=== PATIENT | female | born 1970 | race Caucasian/White ===

== ENCOUNTER 2021-11-13 17:02 | Emergency (ER) | payer BC, SELFPAY ==
[2021-11-13 17:20] VITALS: BP 145/76; PULSE 74; RESP 20; TEMP 36.8; O2SAT 96; BMI 24.0
--- NOTE | 2021-11-13 17:46 | EXP.UTC ---
Discharge Plan Disposition Patient Disposition: Home, Self-Care Condition: Good Prescriptions Prescriptions: New sulfamethoxazole-trimethoprim [Bactrim DS] 800-160 mg tablet 1 tab PO Q12H Qty: 20 0RF mupirocin 2 % ointment 1 applic topical BID Qty: 15 0RF No Action omeprazole 40 mg capsule,delayed release(DR/EC) 40 mg PO DAILY cholecalciferol (vitamin D3) 5,000 unit tablet 5,000 unit PO DAILY amoxicillin 500 mg capsule 500 mg PO Q12H 10 Days Qty: 20 0RF Referrals Follow up/Referrals: Nickolas Song [Primary Care Provider] - See instructions Clinical Impressions Clinical Impression: Insect bite Instructions Patient Instructions: DI for Insect Bites and Stings Discharge ED Provider: Ana ([facility])Gabriella [facility] [place] General Stated complaint: itchy wound on left elbow Mode of Arrival: Ambulatory Source of Information: Patient Limitations: No Limitations Time Seen by Provider: 11/13/21 17:46 Description of Symptoms (Recalled from Triage Doc. by RN): PATIENT C/O POSSIBLE SPIDER BITE TO LEFT ELBOW THAT SHE NOTICED MONDAY. C/O REDNESS AND ITCHING TO AREA HEENT Symptoms (Recalled from RN notes): No Resp Symptoms (Recalled from RN notes): No Skin Symptoms (Recalled from RN notes): Yes MS Symptoms (Recalled from RN notes): No Functional Status (Recalled from RN notes): WNL History of Present Illness Provider Complaint: 51 yr old female presents for red itchy area to left elbow. pt states it started monday with a couple of blisters and a bite area in the middle. Related Data Home Medications Medication Instructions Recorded Confirmed cholecalciferol (vitamin D3) 125 5,000 unit PO DAILY 11/26/17 10/18/18 mcg (5,000 unit) tablet omeprazole 40 mg capsule,delayed 40 mg PO DAILY 11/26/17 10/18/18 release Previous Rx's Medication Instructions Recorded amoxicillin 500 mg capsule 500 mg PO Q12H sinusitis 10 days 10/18/18 #20 caps mupirocin 2 % topical ointment 1 applic topical BID #15 grams 11/13/21 sulfamethoxazole 800 1 tab PO Q12H #20 tabs 11/13/21 mg-trimethoprim 160 mg tablet (Bactrim DS) Allergies Allergy/AdvReac Type Severity Reaction Status Date / Time No Known Allergies Allergy Verified 11/13/21 17:41 Worker's Comp Is this a Worker's Comp case?: No PFSH PFSH Medical History , [employer]) Hyperlipidemia Surgical History , [employer]) History of cholecystectomy History of hysterectomy Social History , [employer]) Smoking Status: Current every day smoker tobacco type: cigarettes alcohol intake: current substance use type: denies use current occupational status: employed Travel in the last 8 weeks: None ROS Obtained: Yes All systems reviewed & no additional complaints except as documented Constitutional Constitutional: Reports system reviewed and no additional complaints, except as documented Eyes Eyes: Reports system reviewed and no additional complaints, except as documented ENT Ears, Nose, Mouth, and Throat: Reports system reviewed and no additional complaints, except as documented Cardiovascular Cardiovascular: Reports system reviewed and no additional complaints, except as documented Respiratory Respiratory: Reports system reviewed and no additional complaints, except as documented Gastrointestinal Gastrointestingal: Reports system reviewed and no additional complaints, except as documented Integumentary/Breasts Skin/Breast: Reports system reviewed and no additional complaints, except as documented, Reports as per HPI and Reports sores Neurologic Neurologic: Reports system reviewed and no additional complaints, except as documented Endocrine Endocrine: Reports system reviewed and no additional complaints, except as documented Hematologic/Lymphatic Henatologic/Lymphatic: Reports syste
[2021-11-13 17:55] VITALS: BP 145/76; PULSE 74; RESP 20; TEMP 36.8; O2SAT 96
== END 2021-11-13 18:00 | disposition home or self-care (01) ==
PROVIDERS: Emergency Provider Nurse Practitioner Family; PCP Internal Medicine
DX: S50.362A Insect bite (nonvenomous) of left elbow, initial encounter (principal); W57.XXXA Bitten or stung by nonvenomous insect and other nonvenomous arthropods, initial encounter
CPT/HCPCS: 99212; G0463

== ENCOUNTER 2021-12-17 08:26 | Emergency (ER) | payer BC, SELFPAY ==
[2021-12-17 08:44] VITALS: BP 176/69; PULSE 80; RESP 18; TEMP 36.7; O2SAT 100; BMI 22.8
--- NOTE | 2021-12-17 09:05 | EXP.UTC ---
Discharge Plan Disposition Patient Disposition: Home, Self-Care Condition: Fair Prescriptions Prescriptions: New prednisone [prednisone] 20 mg tablet 20 mg PO BID 5 Days Qty: 10 0RF ofloxacin 0.3 % drops 1 drp otic (ear) QID 7 Days Qty: 5 0RF Rx Instructions: One drop affected eye every 2 hours while awake X 48 hours, then one drop affected eye QID for an additional 5 days amoxicillin-pot clavulanate 875-125 mg Tablet 1 tab PO Q12H Qty: 20 0RF No Action omeprazole 40 mg capsule,delayed release(DR/EC) 40 mg PO DAILY cholecalciferol (vitamin D3) 5,000 unit tablet 5,000 unit PO DAILY amoxicillin 500 mg capsule 500 mg PO Q12H 10 Days Qty: 20 0RF sulfamethoxazole-trimethoprim [Bactrim DS] 800-160 mg tablet 1 tab PO Q12H Qty: 20 0RF mupirocin 2 % ointment 1 applic topical BID Qty: 15 0RF atorvastatin 10 mg tablet 10 mg PO DAILY Label Comments: TAKE 1 TABLET BY MOUTH ONCE DAILY meloxicam 15 mg tablet 15 mg PO DAILY cyclobenzaprine 5 mg tablet 5 mg PO DIRECTED PRN (Reason: Muscle Pain) Label Comments: TAKE 1 TABLET BY MOUTH EVERY 4 TO 6 HOURS NEEDED Referrals Follow up/Referrals: Nickolas Song [Primary Care Provider] - See instructions Activity Restrictions/Add. Instructions Additional Instructions/Restrictions: Take all antibiotics as prescribed until gone Warm compresses to left eye Return to [facility] if severe pain, blurred vision, worsening of symptoms, etc Follow up with Dr Song next week Clinical Impressions Clinical Impression: Periorbital cellulitis of left eye, Sinusitis Instructions Patient Instructions: DI for Orbital Cellulitis Discharge ED Provider: Yola Schmidt [facility] [place] General Stated complaint: LT eye inflammation, drainage Mode of Arrival: Ambulatory Source of Information: Patient Limitations: No Limitations Time Seen by Provider: 12/17/21 09:08 Description of Symptoms (Recalled from Triage Doc. by RN): pt comes in with c/o waking up to eyes swollen shut. HEENT Symptoms (Recalled from RN notes): Yes Resp Symptoms (Recalled from RN notes): No Skin Symptoms (Recalled from RN notes): No MS Symptoms (Recalled from RN notes): No Functional Status (Recalled from RN notes): n/a History of Present Illness Provider Complaint: Patient has had sinus congestion and drainage for about a week. Last night began having drainage from left eye. This am left eye is swollen, matted, irritated and red. No fever. Onset (ago): day(s) (1) Location: eyes (left) Severity: severe Relieving factors: none Exacerbating factors: none Associated symptoms: denies other symptoms Treatments prior to arrival: none Related Data Home Medications Medication Instructions Recorded Confirmed cholecalciferol (vitamin D3) 125 5,000 unit PO DAILY Supplement 11/26/17 12/17/21 mcg (5,000 unit) tablet omeprazole 40 mg capsule,delayed 40 mg PO DAILY GERD 11/26/17 12/17/21 release atorvastatin 10 mg tablet 10 mg PO DAILY Cholesterol 12/17/21 12/17/21 cyclobenzaprine 5 mg tablet 5 mg PO DIRECTED PRN Muscle Pain 12/17/21 12/17/21 meloxicam 15 mg tablet 15 mg PO DAILY Arthritis 12/17/21 12/17/21 Previous Rx's Medication Instructions Recorded amoxicillin 500 mg capsule 500 mg PO Q12H sinusitis 10 days 10/18/18 #20 caps mupirocin 2 % topical ointment 1 applic topical BID #15 grams 11/13/21 sulfamethoxazole 800 1 tab PO Q12H #20 tabs 11/13/21 mg-trimethoprim 160 mg tablet (Bactrim DS) amoxicillin 875 mg-potassium 1 tab PO Q12H #20 tabs 12/17/21 clavulanate 125 mg tablet ofloxacin 0.3 % ear drops 1 drp otic (ear) QID 7 days #5 mL 12/17/21 prednisone 20 mg tablet 20 mg PO BID 5 days #10 tabs 12/17/21 Allergies Allergy/AdvReac Type Severity Reaction Status Date / Time No Known Allergies Allergy Verified 12/17/21 08:47 Worker's Comp Is this a Worker's Comp case?: No PFSH PFS Medical His
[2021-12-17 09:20] VITALS: BP 176/69; PULSE 80; RESP 18; TEMP 36.7
== END 2021-12-17 09:21 | disposition home or self-care (01) ==
PROVIDERS: Emergency Provider Physician Assistant; PCP Internal Medicine
DX: L03.213 Periorbital cellulitis (principal); J32.9 Chronic sinusitis, unspecified
CPT/HCPCS: 99212; G0463

== ENCOUNTER 2022-11-28 16:16 | Emergency (ER) | payer MEDICARE, SELFPAY ==
[2022-11-28 16:25] VITALS: BP 161/83; PULSE 84; RESP 20; TEMP 36.8; O2SAT 97; BMI 22.6
--- NOTE | 2022-11-28 16:29 | EXP.UTC ---
Discharge Plan Disposition Patient Disposition: Home, Self-Care Condition: Good Prescriptions Prescriptions: New benzonatate [benzonatate] 100 mg capsule 100 mg PO TIDP PRN (Reason: Cough) Qty: 30 0RF methylprednisolone 4 mg Tablets,Dose Pack 4 mg PO DIRECTED Qty: 21 0RF cefdinir 300 mg capsule 300 mg PO BID Qty: 20 0RF No Action omeprazole 40 mg capsule,delayed release(DR/EC) 40 mg PO DAILY cholecalciferol (vitamin D3) 5,000 unit tablet 5,000 unit PO DAILY amoxicillin 500 mg capsule 500 mg PO Q12H 10 Days Qty: 20 0RF sulfamethoxazole-trimethoprim [Bactrim DS] 800-160 mg tablet 1 tab PO Q12H Qty: 20 0RF mupirocin 2 % ointment 1 applic topical BID Qty: 15 0RF atorvastatin 10 mg tablet 10 mg PO DAILY Patient Comments: TAKE 1 TABLET BY MOUTH ONCE DAILY meloxicam 15 mg tablet 15 mg PO DAILY cyclobenzaprine 5 mg tablet 5 mg PO DIRECTED PRN (Reason: Muscle Pain) Patient Comments: TAKE 1 TABLET BY MOUTH EVERY 4 TO 6 HOURS NEEDED prednisone [prednisone] 20 mg tablet 20 mg PO BID 5 Days Qty: 10 0RF ofloxacin 0.3 % drops 1 drp otic (ear) QID 7 Days Qty: 5 0RF Rx Instructions: One drop affected eye every 2 hours while awake X 48 hours, then one drop affected eye QID for an additional 5 days amoxicillin-pot clavulanate 875-125 mg Tablet 1 tab PO Q12H Qty: 20 0RF Referrals Follow up/Referrals: Nickolas Song [Primary Care Provider] - See instructions Activity Restrictions/Add. Instructions Additional Instructions/Restrictions: Drink plenty of fluids. Take tylenol or ibuprofen for pain or fever. Take the medications as directed. Follow up with your regular doctor. GO TO THE ER FOR ANY WORSENING SYMPTOMS Clinical Impressions Clinical Impression: Acute bronchitis, Sinusitis Instructions Patient Instructions: Sinusitis, DI for Sinusitis Discharge ED Provider: Chad Shultz [facility] General Stated complaint: cough Time Seen by Provider: 11/28/22 16:29 History of Present Illness Provider Complaint: She states that for the past 2 weeks she has had a cough and sinus congestion. Related Data Home Medications Medication Instructions Recorded Confirmed cholecalciferol (vitamin D3) 125 5,000 unit PO DAILY Supplement 11/26/17 12/17/21 mcg (5,000 unit) tablet omeprazole 40 mg capsule,delayed 40 mg PO DAILY GERD 11/26/17 12/17/21 release atorvastatin 10 mg tablet 10 mg PO DAILY Cholesterol 12/17/21 12/17/21 cyclobenzaprine 5 mg tablet 5 mg PO DIRECTED PRN Muscle Pain 12/17/21 12/17/21 meloxicam 15 mg tablet 15 mg PO DAILY Arthritis 12/17/21 12/17/21 Previous Rx's Medication Instructions Recorded amoxicillin 500 mg capsule 500 mg PO Q12H sinusitis 10 days 10/18/18 #20 caps mupirocin 2 % topical ointment 1 applic topical BID #15 grams 11/13/21 sulfamethoxazole 800 1 tab PO Q12H #20 tabs 11/13/21 mg-trimethoprim 160 mg tablet (Bactrim DS) amoxicillin 875 mg-potassium 1 tab PO Q12H #20 tabs 12/17/21 clavulanate 125 mg tablet ofloxacin 0.3 % ear drops 1 drp otic (ear) QID 7 days #5 mL 12/17/21 prednisone 20 mg tablet 20 mg PO BID 5 days #10 tabs 12/17/21 benzonatate 100 mg capsule 100 mg PO TIDP PRN Cough #30 caps 11/28/22 cefdinir 300 mg capsule 300 mg PO BID #20 caps 11/28/22 methylprednisolone 4 mg tablets in 4 mg PO DIRECTED #21 tabs 11/28/22 a dose pack Allergies Allergy/AdvReac Type Severity Reaction Status Date / Time No Known Allergies Allergy Verified 12/17/21 08:47 [facility] Disclaimer: The information contained in this section may have been updated after the patient was seen, as this information can be updated by other users. Medical History (Updated 11/28/22 @ 17:13 by Chad Shultz APRN) History of anemia Hyperlipidemia Migraine Surgical History History of cholecystectomy His
[2022-11-28 16:38] VITALS: BP 161/83; PULSE 84; RESP 20; TEMP 36.8; O2SAT 97
== END 2022-11-28 17:19 | disposition home or self-care (01) ==
PROVIDERS: Emergency Provider Nurse Practitioner Family; PCP Internal Medicine
DX: J20.9 Acute bronchitis, unspecified (principal); J02.9 Acute pharyngitis, unspecified; F17.210 Nicotine dependence, cigarettes, uncomplicated; E78.5 Hyperlipidemia, unspecified
CPT/HCPCS: 87635; 99212; 99214; G0463

== ENCOUNTER → 2023-02-08 16:08 | Outpatient (POV) | payer MEDICARE, SELFPAY | PROVIDERS: PCP Internal Medicine; Visit Provider Specialist/Technologist | DX: Z00.00 Encounter for general adult medical examination without abnormal findings (principal) ==

== ENCOUNTER 2023-12-21 12:24 | Emergency (ER) | payer MEDICARE, SELFPAY ==
[2023-12-21 12:41] VITALS: BP 118/82; PULSE 78; RESP 18; TEMP 36.7; O2SAT 99; BMI 25.3
[2023-12-21 12:50] LABS: UTC Strep Screen (Rapid) Negative (Negative)
--- NOTE | 2023-12-21 13:04 | ED_ITS ---
Discharge Plan Disposition Patient Disposition: Home, Self-Care Condition: Good Prescriptions Prescriptions: New benzonatate 100 mg capsule 100 mg PO TIDP PRN (Reason: Cough) Qty: 30 0RF methylprednisolone 4 mg Tablets,Dose Pack 4 mg PO DIRECTED 6 Days Qty: 21 0RF Rx Instructions: Take 1 pack as directed for 6 days amoxicillin-pot clavulanate 875-125 mg Tablet 1 tab PO Q12H Qty: 20 0RF Discontinued amoxicillin 500 mg capsule 500 mg PO Q12H 10 Days Qty: 20 0RF benzonatate [benzonatate] 100 mg capsule 100 mg PO TIDP PRN (Reason: Cough) Qty: 30 0RF methylprednisolone 4 mg Tablets,Dose Pack 4 mg PO DIRECTED Qty: 21 0RF cefdinir 300 mg capsule 300 mg PO BID Qty: 20 0RF sulfamethoxazole-trimethoprim [Bactrim DS] 800-160 mg tablet 1 tab PO Q12H Qty: 20 0RF prednisone [prednisone] 20 mg tablet 20 mg PO BID 5 Days Qty: 10 0RF amoxicillin-pot clavulanate 875-125 mg Tablet 1 tab PO Q12H Qty: 20 0RF No Action omeprazole 40 mg capsule,delayed release(DR/EC) 40 mg PO DAILY cholecalciferol (vitamin D3) 5,000 unit tablet 5,000 unit PO DAILY mupirocin 2 % ointment 1 applic topical BID Qty: 15 0RF atorvastatin 10 mg tablet 10 mg PO DAILY Patient Comments: TAKE 1 TABLET BY MOUTH ONCE DAILY meloxicam 15 mg tablet 15 mg PO DAILY cyclobenzaprine 5 mg tablet 5 mg PO DIRECTED PRN (Reason: Muscle Pain) Patient Comments: TAKE 1 TABLET BY MOUTH EVERY 4 TO 6 HOURS NEEDED ofloxacin 0.3 % drops 1 drp otic (ear) QID 7 Days Qty: 5 0RF Rx Instructions: One drop affected eye every 2 hours while awake X 48 hours, then one drop affected eye QID for an additional 5 days Referrals Follow up/Referrals: Nickolas Song [Primary Care Provider] - See instructions Activity Restrictions/Add. Instructions Additional Instructions/Restrictions: Drink plenty of fluids. Take tylenol or ibuprofen for pain or fever. Take the medications as directed. Follow up with your regular doctor. GO TO THE ER FOR ANY WORSENING SYMPTOMS Don't start the oral steroids (medrol dose pack) until tomorrow since you had the shot here Clinical Impressions Clinical Impression: Sinusitis, Acute bronchitis Instructions Patient Instructions: DI for Sinusitis, DI for Acute Bronchitis, Ceftriaxone Injection, Dexamethasone Injection Print Language Print Language: Citizen Of [place] Discharge ED Provider: Chad Shultz [facility] [place] General Stated complaint: loss of throat, cough,sore throat,headache Mode of Arrival: Ambulatory Source of Information: Patient Limitations: No Limitations Time Seen by Provider: 12/21/23 13:04 Description of Symptoms (Recalled from Triage Doc. by RN): cough,raw throat,congestion HEENT Symptoms (Recalled from RN notes): Yes Resp Symptoms (Recalled from RN notes): Yes Skin Symptoms (Recalled from RN notes): No MS Symptoms (Recalled from RN notes): No Functional Status (Recalled from RN notes): na Related Data Home Medications ?Medication ?Instructions ?Recorded ?Confirmed cholecalciferol (vitamin D3) 125 5,000 unit PO DAILY Supplement 11/26/17 12/17/21 mcg (5,000 unit) tablet omeprazole 40 mg capsule,delayed 40 mg PO DAILY GERD 11/26/17 12/17/21 release atorvastatin 10 mg tablet 10 mg PO DAILY Cholesterol 12/17/21 12/17/21 cyclobenzaprine 5 mg tablet 5 mg PO DIRECTED PRN Muscle Pain 12/17/21 12/17/21 meloxicam 15 mg tablet 15 mg PO DAILY Arthritis 12/17/21 12/17/21 Previous Rx's ?Medication ?Instructions ?Recorded mupirocin 2 % topical ointment 1 applic topical BID #15 grams 11/13/21 ofloxacin 0.3 % ear drops 1 drp otic (ear) QID 7 days #5 mL 12/17/21 amoxicillin 875 mg-potassium 1 tab PO Q12H #20 tabs 12/21/23 clavulanate 125 mg tablet benzonatate 100 mg capsule 100 mg PO TIDP PRN Cough #30 caps 12/21/23 methylprednisolone 4 mg tablets in 4 mg PO DIRECTED 6 days #21 tabs 12/21/23 a dose pack Allergies Allergy/AdvReac Type Severity Reaction Status Date / Time No Known Allergies Allergy Verified 12/17/21 08:47 Worker's Comp Is this a Worker's Comp case?: No Is this an [facility] Worker's Comp?: No Is this a [place] Worker's Comp?: No [facility] Disclaimer: The information contained in this section may have been updated after the patient was seen, as this information can be updated by other users. Medical History (Updated 12/21/23 @ 13:47 by Chad Shultz APRN) History of anemia Migraine Hyperlipidemia Surgical History History of hysterectomy History of cholecystectomy Social History Smoking Status: Current every day smoker tobacco type: cigarettes alcohol intake: current alcohol intake frequency: holidays/special occasions only substance use type: denies use current occupational status: employed Travel in the last 8 weeks: None ROS Obtained: Yes All systems reviewed & no additional complaints except as documented Constitutional Constitutional: Reports chills and Reports fever(s) Eyes Eyes: Denies eye discharge ENT Ears, Nose, Mouth, and Throat: Reports as per HPI Cardiovascular Cardiovascular: Denies chest pain Respiratory Respiratory: Denies chest congestion and Reports cough Gastrointestinal Gastrointestingal: Reports nausea; Denies abdominal pain, constipation, cramping, diarrhea or vomiting Musculoskeletal Musculoskeletal: Denies arthralgias Integumentary/Breasts Skin/Breast: Denies rash Neurologic Neurologic: Denies paresthesias Physical Exam General General appearance: alert and in no apparent distress Eye Eye exam: Present normal appearance, PERRL and EOMI ENT ENT exam: Present mucous membranes moist and normal external ear exam Expanded ENT Exam External ear exam: Present normal external inspection TM/Canal exam: Bilateral TM: erythema and bulging Nose exam: Absent sinus tenderness Nasal speculum exam: Bilateral: normal Mouth exam: Present normal external inspection; Absent drooling Teeth exam: Present normal inspection Throat exam: Present tonsillar erythema and tonsillomegaly Neck Neck exam: Present normal inspection, full ROM and trachea midline; Absent tenderness, lymphadenopathy or thyromegaly Chest Chest inspection: Present normal inspection and symmetric chest wall rise; Absent tenderness or rash Respiratory Respiratory exam: Present normal lung sounds bilaterally; Absent respiratory distress, wheezes, stridor or accessory muscle use Cardiovascular Cardiovascular exam: Present regular rate, normal rhythm and normal heart sounds Abdominal Exam Abdominal exam: Present soft; Absent distention, tenderness, guarding, rebound or rigidity Extremities Exam Extremities exam: Present normal inspection, full ROM and normal capillary refill; Absent tenderness or calf tenderness Back Exam Back exam: Present normal inspection and full ROM; Absent tenderness Neurological Exam Neurological exam: Present alert and oriented X3 Psychiatric Psychiatric exam: Present normal affect and normal mood Skin Skin exam: Present warm, dry, intact and normal color Lymphatic Lymphatic Findings: no adenopathy Medical Decision Making Medical Records Medical records reviewed: No I reviewed the patient's medical records. Screening: Per USPSTF and CDC recommendations, given the prevalence of disease in our region, it is our hospital?s policy to screen for HIV and viral Hepatitis for all patients aged 18 and over and those with ongoing risk factors. Janusz Inquiry Pt receiving controlled substance: No Vital Signs: 12/21/23 12:41 Temperature 98.1 F Temperature Source Oral Pulse Rate [Right] 78 Respiratory Rate 18 Blood Pressure [Right Arm] 118/82 Blood Pressure Mean [Right Arm] 94 02 Sat by Pulse Oximetry 99 Lab Data Lab results reviewed: Yes I reviewed the patient's lab results. Lab Results 12/21/23 12:42: Strep Scn Rapid Clinic Negative Orders (Tests/Meds): ORDERS Category Date Time Status Strep Screen Confirmation Stat Micro 12/21/23 12:42 Received
[2023-12-21] MEDS: DEXAMETHASONE 4MG/ML 1ML VIAL 8 MG IM (13:26)
[2023-12-21] MEDS: cefTRIAXone 1GM VIAL 1 GM IM (13:26)
[2023-12-21] MEDS: LIDOCAINE 1% 5ML PF VIAL IM (13:29)
[2023-12-21 14:19] VITALS: BP 118/82; PULSE 78; RESP 18; TEMP 36.7; O2SAT 99
== END 2023-12-21 14:00 | disposition home or self-care (01) ==
PROVIDERS: Emergency Provider Nurse Practitioner Family; PCP Internal Medicine
DX: J01.80 Other acute sinusitis (principal); J20.9 Acute bronchitis, unspecified
CPT/HCPCS: 87880; 96372; 99213; G0381; J0696; J1100

== ENCOUNTER 2024-09-18 14:32 | Outpatient (POV) | payer OTHER, MEDICARE, SELFPAY ==
--- OUTSIDE RECORDS SUMMARY | 2024-09-18 14:38 | XMS_ITS | Clinical Summary ---
Author Organization [facility] Address [address] [place] [address] Care Team Providers Care Case Monitor Name Role Phone Nickolas Song Deondre DO Primary Care Provider Social History Tobacco Use Types Packs/Day Years Used Date Smoking Tobacco: Never Assessed Abuse Screen Answer Date Recorded Unsafe at Home or Work/School Not on file Feels Threatened by Someone? Not on file 10/2022 Does Anyone Keep You from Co ntacting Others or Doint Things Outside the Home? Not on file 11/21/2022 Physical Sign of Abuse Present Not on file 1 Housing Stability Answer Date Recorded Current Living Arrangements Not on file 10/2022 Potentially Unsafe Housing Conditions Not on melina e 11/21/2022 Family and Community Support Answer Kevin e Recorded Help with Day-to-Day Activities Not on file 11/21/2022 Lonely or Isolated Not on file 11/21/2022 Employment Answer Date Recorded Do you want help finding or keeping work or a juan antonio b? Not on file 11/21/2022 Disabilities Answer Date Recorded Concentrating, Remembering, or Making Decisions Difficulty Not on file 11/21/2022 Doing Errands Independently Difficulty Not on fi le 11/21/2022 Education Answer Date Recorded Help with school or training? Not on file Preferred Language Not on file 11/21/2022 Comments Unknown Sex and Gender Information Value Date Recorded Sex Assigned at Not on file Legal Sex Female 11:52 AM EDT Gender Identity Not on file Sexual Orientation Not on file Plan of Treatment Health Maintenance Due Date Last Done Comments ANNUAL WELLNESS VISIT 1969 Annual Gynecologic Pelvic and Breast Exam 1969 HEPATITIS C SCREENING 1969 TDAP/TD VACCINES (1 - Tdap) 02/04/1988 MAMMOGRAM 2009 COLOGUARD 2014 COLON CANCER SCREENING 5 YEAR SIGMOIDOSCOPY 2014 COLONOSCOPY [address] CANCER SCREENING [address] COLONOGRAPHY 2014 FECAL OCCULT BLOOD TEST 2014 FIT Testing (1 year) 2014 Pneumococcal Vaccine 50+ (1 of 1 - PCV) 2019 ZOSTER VACCINE (1 of 2) 2019 COVID-19 Vaccine (1 - season) 2023 INFLUENZA VACCINE 11/13/2024 01/02/2023 Insurance MEDICARE ADVANTAGE HMO Care Teams Case Monitor Relationship Specialty [place] [address] [place] [address] [address] [place] [address] PCP - General 01/15/15
--- OUTSIDE RECORDS SUMMARY | 2024-09-18 14:38 | XMS_ITS | Clinical Summary ---
Author Organization [facility] Address [address] [place] [id number] Phone [email or web address] Care Team Providers Care Office Engineer Name Role Phone Unavailable Primary Care Provider Unavailabl e Allergies No known active allergies Medications omeprazole (PriLOSEC) [address] capsule 0 Active ergocalciferol (VITAMIN D2) 1.25 MG (42296 UT) capsule 1 Active Ascorbic Acid (Vitamin C) 500 MG capsule Vitamin C Active Cyanocobalamin 1000 MCG/ML kit B-12 Plex W/Vitamin C injection solution Take by injection route. Active Active Problems No known active problems Social History Tobacco Use Types Packs/Day Years Used Date Smoking Tobacco: Every Day Cigarettes 1 29 Smokeless Tobacco: Never Intimate Partner Violence Answer Date R ecorded Insults You Not on file 03/30/2021 Threatens You Not on file 03/30/2021 Screams at You Not on file 03/30/2021 Physically Hurt Not on file 03/30/2021 Intimate Partner Violence Score Not on file 03/30/2021 Stress Answer Date Recorded Stress in your Life 0 03/23/2020 Dealing with Stress Not on file 03/23/2020 Comments Unknown Sex and Gender Information Value Date Recorded Sex Assigned at Not on file Legal Sex Female 10:46 AM CDT Gender Identity Not on file Sexual Orientation Not on file Last Filed Vital Signs Vital Sign Reading Time Taken Comments Blood Pressure - - Pulse 76 03/18/2020 8:18 AM EST Temperature 36.6 C (97.8 F) 03/18/2020 8:18 AM EST Respiratory Rate - - Oxygen Saturation 96% 03/18/2020 8:18 AM EST Inhaled Oxygen Concentration - - Weight - - Height - - Body Mass Index - - Plan of Treatment Health Maintenance Due Date Last Done Comments CT Colonography 1969 Cervical Cancer Screening Combo 1969 Colonoscopy 1969 Colorectal Cancer Screening Combo 1969 DNA Cologuard 1969 Dental Cleaning/Exam 1969 FIT or FOBT Test 1969 HPV / Cotest 1969 Pap Testing 1969 Sigmoidoscopy 1969 Hepatitis B Immunization (1 of 3 - 19+ 3-dose series) 02/04/1988 Tetanus Diphtheria and Pertu ssis Immunization (1 - Tdap) 02/04/1988 Breast Cancer Screening 1999 Zoster Immunization (1 of 2) 2019 Covid-19 Immunization (1 - 2 -25 season) 2023 Influenza Immunization (#1) 2024 HIB Immunization Aged Out No longer e ligible based on patient's age to complete this topic HPV Immunization Aged Out No longer e ligible based on patient's age to complete this topic Hepatitis A Immunization Aged Out No longer eligible based on patient's age to complete this topic Pneumococcal: Ped (0 to 5 Yr s) and At-Risk Member (6 to 64 Yrs) Aged Out No longer e ligible based on patient's age to complete this topic Polio Immunization Aged Out No longer eligible based on patient's age to complete this topic Insurance OPT OUT NO COPAY NB
--- NOTE | 2024-09-18 15:02 | A.OFFVIS_ITS ---
HPI Data of Consult Patient: new to practice Consult date: 09/18/24 Requesting Physician: Olga Clements APRN Primary Care Provider: Nickolas Song Reason for consult: Right shoulder, hand and wrist pain History of present illness: Ms. Valdovinos is a 54 year old female who presents today as a new patient. She is a referral from Dr. Romie hanson office. She states her pain gets much worse with increased movement or range of motion. She does state that this all started from an accident in 2019 at [facility] where she ended up having significant injuries to her right shoulder that went all the way down her arm. She ended up having to have surgery on her wrist as well as carpal tunnel release and rotator cuff tear repair along with a procedure on her bicep. Patient ended up being put in a full cast and ultimately cause frozen shoulder. Patient does state that she ended up doing physical therapy and that did help some however she is now lost some of her range of motion. She states it is chronic and pretty much constant. She states that she continues to have pain that is an aching, throbbing sensation with numbness and tingling that radiates down into her wrist. Patient has had EMG and other testing and was ultimately diagnosed with CRPS. Patient was doing Tylenol, diclofenac and Flexeril however it ended up causing a lot of stomach issues. She was ultimately sent to pain management they are perish's with Dr. Núñez and they had talked about doing some injections as well as a spinal cord stimulator trial. Patient ended up feeling not as comfortable with that physician and ended up getting worried and did not want to proceed forward with those options at that office. Patient does state that she would like to see what we can do. Patient has had a psychological evaluation back in 2022 that did deem her an appropriate candidate for the trial. Patient is interested in any help we may be able to provide as it is interfering with her ability perform activities of daily living such as cooking and cleaning. Her Janusz has been reviewed and is appropriate. Pain at rest (0-10 scale): 5 Has patient had previous pain injection?: No Conservative treatment options previously tried: Home exercise plan (Longer than 12 weeks) and Physical Therapy (Some relief) cc:: CC: Olga Clements APRN [facility] Disclaimer: The information contained in this section may have been updated after the patient was seen, as this information can be updated by other users. Medical History History of anemia Migraine Hyperlipidemia Surgical History History of rotator cuff surgery History of carpal tunnel surgery History of neck surgery History of hysterectomy History of cholecystectomy Family History (Updated 09/18/24 @ 15:37 by Taryn Phillips RN) Other Unknown family medical history Social History Smoking Status: Current every day smoker tobacco type: cigarettes alcohol intake: never substance use type: denies use current occupational status: employed Travel in the last 8 weeks?: None Review of Systems Review of Systems Review of systems:: pertinent systems reviewed and negative unless documented below Review of systems (narrative): Review of Systems: General: No recent weight changes, no fever, no sleep disturbances Respiratory: No cough, no shortness of air, no recurring pulmonary infections Cardiovascular/peripheral vascular: No chest pain, no palpitations, no edema, no shortness of breath Gastrointestinal: No new onset incontinence, normal bowel movements reported Genitourinary: No new onset incontinence Musculoskeletal: Right shoulder pain, arm pain, wrist pain Psychiatric: [Normal mood/affect] Neurological: [Denies weakness in extremities], [denies balance issues] Meds Home Medications and Allergies Home Medications ?Medication ?Instructions ?Recorded ?Confirmed ?Type atorvastatin 10 mg tablet 10 mg PO DAILY Cholesterol 1 02/16/21 07/07/24 History cyclobenzaprine 5 mg tablet 5 mg PO DIRECTED PRN Mu scle Pain 12/17/21 0 07/07/24 History diclofenac sodium 75 mg mg PO 04/06/24 07/07/24 Hist ory tablet,delayed release pantoprazole 40 mg tablet,delayed mg PO 04/06/2407/07 History release valsartan 80 mg tablet 80 mg PO DAILY 04/06/2406/14 History cefdinir 300 mg capsule 300 mg PO Q12H 7 days #14 ca ps 07/07/24 07/07/24 Rx New Prescriptions to Start Prescriptions: Allergies Allergy/AdvReac Type Severity Reaction Status Date / Time No Known Allergies Allergy Verified 07/07/24 14:36 Objective Narrative: Physical Exam: General: Alert and oriented x3, no acute distress, pleasant and cooperative Lungs: Respirations even and unlabored, symmetrical chest expansion Eyes: PERRL Musculoskeletal: Flexion and extension of right shoulder somewhat guarded secondary to pain, [antalgic gait noted] decreased sensation to light touch and decreased reflexes all along the right arm Neurological: Speech clear, no gross sensory deficit Assessment and Plan *Assessment and plan (1) CRPS (complex regional pain syndrome), upper limb: Status: Acute Category: Medical Code(s): G90.519 - Complex regional pain syndrome I of unspecified upper limb (2) Right shoulder pain: Status: Acute Category: Medical Code(s): M25.511 - Pain in right shoulder (3) Right arm pain: Status: Acute Category: Medical Code(s): M79.601 - Pain in right arm (4) Chronic pain syndrome: Status: Acute Category: Medical Code(s): G89.4 - Chronic pain syndrome Plan Patient is experiencing significant pain throughout her right arm from her shoulder down related to a work injury. Patient has had multiple testing and several surgeries to repair the damage however has been left with residual pain and altered sensation. Patient did have very limited range of motion of her shoulder as well as her arm with altered sensation to light touch and decreased reflexes. I did discuss with the patient regarding multiple options to see if we could get her improvement. I will order her a compounded cream. Patient was also counseled that I do believe that a stellate ganglion nerve block would be beneficial. Risk and benefits were discussed with the patient and she would like to proceed forward with this plan of care. Patient did state that this is a Worker's Comp. related injury and that she is having to pay [id number]. I did discuss with her that I will send her to our [place] office location to have this nerve block done in order to make her cost as little as possible. Patient was counseled that she will need a regional refrigerated cdl truck driver for this injection and the [place] office will reach out to her with the date and time. Patient has tried oral medications, heat and ice, topicals, physical therapy and continued at home stretching exercise for longer than 12 weeks that was physician guided. Patient also has had multiple surgeries that have not provided significant improvement. We did also discuss in length regarding the possibility of a spinal cord stimulator trial in future. Educational handouts were given and I will reach out to [employer] representatives to reach out to the patient to introduce themselves and come and go over some details on this for future. Patient will return to our office after her nerve block for reevaluation of symptoms and plan of care. The stellate ganglion right-sided nerve block will be done under fluoroscopic guidance. Patient agrees with this plan of care. Patient has been instructed to contact the clinic with any concerns before the next appointment. Dr. Barrios has reviewed this note and agrees with this plan of care. This note was dictated using voice recognition software and make contain errors or omissions. All injections are used with Lidocaine, Bupivacaine and dexamethasone. Occasionally urine drug screen is needed to verify patient's compliance with our office pain contract. This is ordered based off specific treatments related to chronic pain with the potential to abuse certain medications.
[2024-09-18 15:36] VITALS: BP 156/68; PULSE 84; RESP 18; O2SAT 97; BMI 25.0
== END 2024-09-18 23:59 | disposition home or self-care (01) ==
PROVIDERS: PCP Internal Medicine; Visit Provider Nurse Practitioner Family
DX: G90.511 Complex regional pain syndrome I of right upper limb (principal); G89.4 Chronic pain syndrome; Z79.1 Long term (current) use of non-steroidal anti-inflammatories (NSAID); Z79.899 Other long term (current) drug therapy
CPT/HCPCS: 99202; G0463